=== PATIENT | female | born 1970 | race Caucasian/White ===

== ENCOUNTER 2023-03-13 17:01 | Emergency (ER) | payer BC, SELFPAY ==
[2023-03-13] VITALS (25 sets, daily range): BP systolic 47–154; BP diastolic 37–111; PULSE 51–85; RESP 6–23; TEMP 36.8; O2SAT 95–100
--- NOTE | 2023-03-13 17:00 | RT.EKG_ITS ---
APPROVED REPORT Exam: Resting ECG Reason for Exam: chest pain Patient Location: E HR:62 bpm ECG Measurements Heart Rate 62 AXIS AL 139 P 70 QRSd 106 QRS 86 QT 420 T 56 QTc 428 Conclusion Sinus rhythm...normal P axis, V-rate 60- 99 Probable left atrial enlargement...P >50mS, <-0.10mV V1 sinus rhythm, normal axis, normal intervals, non ischemic
--- NOTE | 2023-03-13 17:15 | DI.RAD_ITS ---
Exam(s) XR PORTABLE CHEST AP EXAM: XR PORTABLE CHEST AP CLINICAL HISTORY: chest pain TECHNIQUE: 2D digital imaging was performed of the chest. One image was obtained. An AP view was ob tained. COMPARISON: CR CHEST 2 VIEWS PA,LAT from 11/25/2017 FINDINGS: MEDIASTINUM: Normal. HEART: Normal. PULMONARY VASCULATURE: Normal. LUNGS: Clear. PLEURAL SPACE: No pleural effusion or pneumothorax. BONE:Within normal limits for the patient's age. OTHER FINDINGS:Normal. IMPRESSION: No acute pulmonary findings. DATA REPOSITORY: RADIATION DOSE DELIVERED:
--- NOTE | 2023-03-13 17:20 | ED.GENADUL_ITS ---
Discharge Plan Disposition Patient Disposition: Home Condition: Improving Discharge Details Chief Complaint: Chest Pain Clinical Impression: Pre-syncope Primary Care Provider: Mckayla Beasley ED Provider: Laron Salinas Home Meds and New Rx's Prescriptions: No Action iodine (kelp) [Kelp] 150 MCG tablet 150 mcg PO DAILY Probiotic Complex 1 EACH tablet 2 ea PO DAILY cholecalciferol (vitamin D3) 2,000 UNIT tablet 2,000 mcg PO Discharge Instructions Instructions: Near Syncope (ED) Additional Instructions: Please follow-up with your primary care physician. Please return to the emergency department for any worsening symptoms Medical Decision Making 52-year-old female presents with anterior chest pain the setting of standing talking to a coworker, some radiation to right shoulder and jaw, mild dyspnea all symptoms completely resolved currently, felt presyncopal in nature but did not lose consciousness. Has had prior episodes like this in the past. No exogenous estrogen no history of thromboembolic disease. Hemodynamically stable although hypertensive on arrival, no respiratory distress no peripheral edema. EKG normal sinus rhythm nonischemic, must consider ACS versus GERD versus pleurisy versus referred pain from biliary process such as biliary colic versus less likely cholecystitis versus gas versus costochondritis versus anxiety versus orthostasis low suspicion for PE or aortic pathology. Low suspicion for pneumothorax. Will obtain screening labs chest x-ray EKG, fluids antiemetics, aspirin close reassessment 21: 05 vesicles with no acute distress. Labs and imaging unremarkable. Patient to follow-up with her primary care HPI General Date/Time Provider Initiated Documentation: 03/13/23 17:08 . HPI Narrative: 52-year-old female presents with anterior chest pain, lightheadedness slight shortness of breath that resolved before arrival, patient was standing talking with coworkers at work when this happened, did not lose consciousness. Denies exogenous estrogen use denies leg pain or swelling denies history of thromboembolic disease or coronary disease. Related Data Home Medications Medication Instructions Recorded Confirmed iodine (kelp) 0.15 mg tablet (Kelp) 150 mcg PO DAILY 02/11/14 11/25/17 lactobacillus combo no.6 4 billion 2 ea PO DAILY 04/25/15 03/13/23 cell tablet (Probiotic Complex) cholecalciferol (vitamin D3) 50 2,000 mcg PO 09/21/15 mcg (2,000 unit) tablet Allergies Allergy/AdvReac Type Severity Reaction Status Date / Time No Known Drug Allergies Allergy Unverified 03/13/23 17:09 General Stated Complaint: Chest Pain LEWIS: 2 Review of Systems Narrative: Review of Systems Constitutional: negative Eyes: negative ENT: negative Cardiovascular: Chest pain Respiratory: negative Gastrointestinal: negative : negative Musculoskeletal: negative Skin: negative Neurologic: negative Psych: negative PFSH All Active Problems (Updated 03/13/23 @ 21:06 by Laron Salinas MD) Pre-syncope (Acute) Medical History (Updated 03/13/23 @ 21:06 by Laron Salinas MD) Abnormal Pap ? Diagnosis 1989 followed by cryocautery [ no records available] breast biopsy L benign 10/2011 L cluster microcalcifications stereotactic biopsy negative Surgical History (Updated 07/22/18 @ 14:[address] [employer] [address] [place]) Arthroplasty of knee 2007 Biopsy of breast 2011 L stereotactic negative Cervical Procedure 1989 Cryocautery Family History Mother Mental disorder Father No problems noted. Sister No problems noted. Sister No problems noted. Brother No problems noted. Brother No problems noted. Social History Smoking/Tobacco Use Status: Never Smoking risk assessment performed?: Yes Substance use type: marijuana Do you feel safe at home: Yes Do you feel safe in your relationship?: Yes Exam Narrative Exam Narrative: Physical Examination General: alert, awake, cooperative, resting comfortably, no acute distress HEENT: normocephalic, atraumatic; PERRL, EOM intact, conjunctiva normal; no nasal discharge; moist mucous membranes, oral and pharyngeal mucosa normal, tolerating secretions Neck: supple, trachea midline; full ROM Chest: normal to inspection Respiratory: normal respiratory effort, speaking in full sentences, clear to auscultation, no wheezing, rales or rhonchi Cardiac: regular rate, regular rhythm, S1S2 intact, no murmurs rubs or gallops GI: abdomen soft, non-tender, non-distended; no palpable mass or hepatosplenomegaly Skin: no lesions, rashes or trauma appreciated Neuro: AAOx3, normal speech, moving all extremities Extremities: No peripheral edema Psych: Appropriate mood and affect Course Vital Signs Vital signs: Vital Signs Temperature 36.8 C 03/13/23 17:03 Pulse 85 03/13/23 17:03 Respiratory Rate 16 03/13/23 17:03 Blood Pressure 154/111 H 03/13/23 17:03 Pulse Oximetry 98 03/13/23 17:03 Temperature 36.8 C 03/13/23 17:03 Temperature Source Skin 03/13/23 17:03 Pulse 85 03/13/23 17:03 Respiratory Rate 14 03/13/23 17:10 Respiratory Effort Normal 03/13/23 17:10 Respiratory Depth Normal 03/13/23 17:10 Respiratory Pattern Normal 03/13/23 17:10 Blood Pressure 154/111 H 03/13/23 17:03 Pulse Oximetry 98 03/13/23 17:03 Oxygen Delivery Method Room Air 03/13/23 17:03 Oxygen Flow Rate 0 03/13/23 17:03 Pain Level 0 03/13/23 17:03
[2023-03-13] MEDS: Aspirin 81 MG CHEW 324 MG CH (17:26)
[2023-03-13] MEDS: Ondansetron 4 MG/2 ML VIAL IVP (17:26)
[2023-03-13] MEDS: Mylanta Suspension 30 ML CUP PO (17:26)
[2023-03-13] MEDS: Normal Saline 500 ML 1000 ML IV (17:26)
[2023-03-13 17:36] LABS: Abs Immature Grans 0.03 10^3/uL (0.0-0.06); Absolute Basophil Count 0.08 10^3/uL (0.0-0.2); Absolute Eosinophil Count 0.18 10^3/uL (0.0-0.7); Absolute Lymphocyte Count 3.66 10^3/uL (1.2-3.4); Absolute Monocyte Count 0.52 10^3/uL (0.1-0.8); Absolute Neutrophil Count 3.17 10^3/uL (1.2-6.7); Eosinophils % 2.4; HCT 39.7 % (36.0-46.0); HGB 13.2 g/dL (11.2-15.7); Immature Grans % 0.4; Lymphocytes % 47.9; MCHC 33.2 % (32.0-36.0); MCV 90 fL (80-95); MPV 9.7 fL (8.0-11.0); Monocytes % 6.8; Neutrophils % 41.5; Platelet Count 232 10^3/uL (130-400); RDW 11.9 % (11.7-14.6); RDW-SD 39.6 fL; WBC 7.64 10^3/uL (4.4-10.8)
--- NOTE | 2023-03-13 17:48 | DI.VRAD_ITS ---
PROCEDURE INFORMATION: Exam: XR Chest Exam date and time: 03/13/2023 5:32 PM Age: 52 years old Clinical indication: Pain; Chest pressure TECHNIQUE: Imaging protocol: Radiologic exam of the chest. Views: 1 view. COMPARISON: CR CHEST 2 VIEWS PA,LAT 25/11/2017 16:55 FINDINGS: Tubes, catheters and devices: EKG wires overlie the chest. Lungs: Unremarkable. No consolidation. Pleural spaces: Unremarkable. No pleural effusion. No pneumothorax. Heart/Mediastinum: Prominent cardiac silhouette. Bones/joints: Unremarkable for patient's age. IMPRESSION: No acute cardiopulmonary findings. Dictated and Authenticated by: Chapis Wallace MD. Ordering:CRISTIAN Larry MD
[2023-03-13 17:50] LABS: INR 0.9 (0.9-1.1); PTT Activated 24.2 sec (21.5-31.9); Prothrombin Time 9.3 sec (9.3-11.0)
[2023-03-13 18:01] LABS: ALT 25 U/L (14-59); AST 13 U/L (15-37); Albumin 4.1 g/dL (3.4-5.0); Alkaline Phosphatase 103 U/L (46-116); Anion Gap 5.5 mmol/L (3-11); BUN 16 mg/dL (7-18); Bilirubin, Total 0.2 mg/dL (0.2-1.0); CO2 30.5 mmol/L (21.0-32.0); CREATININE 1.3 mg/dL (0.55-1.02); Calcium 8.6 mg/dL (8.5-10.1); Chloride 102 mmol/L (98-107); Estimated GFR 49.79 (mL/min/1.73m2); Glucose 106 mg/dL (74-106); Magnesium 2.3 mg/dL (1.8-2.4); NT-proBNP 36 pg/mL (<300); Potassium 3.5 mmol/L (3.5-5.1); Sodium 138 mmol/L (136-145); TSH (W/Ref FT4) 4.55 uIU/mL (0.36-3.74); Total Protein 7.5 g/dL (6.4-8.2); Troponin I < 50 ng/L (<or=60)
[2023-03-13 18:27] LABS: FREE T4 0.77 ng/dL (0.76-1.46)
[2023-03-13 20:29] LABS: Troponin I < 50 ng/L (<or=60)
== END 2023-03-13 21:13 | disposition home or self-care (01) ==
PROVIDERS: Emergency Provider Emergency Medicine; PCP Naturopath
DX: R07.9 Chest pain, unspecified (principal); R42 Dizziness and giddiness; R06.09 Other forms of dyspnea; R51.9 Headache, unspecified; R55 Syncope and collapse
CPT/HCPCS: 80053; 93005; 96361; 96374; 99284; 71045; 83735; 83880; 84439; 84443; 84484; 85025; 85610; 85730; 93010; J2405